=== PATIENT | female | born 1975 | race Caucasian/White ===

== ENCOUNTER 2017-07-07 23:22 | Emergency (ER) | payer SELFPAY ==
[~2017-07-07] VITALS: Ht 165.1 cm; Wt 76.0 kg
[2017-07-07 23:40] VITALS: Ht 165.1 cm; Wt 76.0 kg
== END 2017-07-08 01:41 | disposition left against medical advice (07) ==
LOC: FTE 23:22
DX: Z53.21 Procedure and treatment not carried out due to patient leaving prior to being seen by health care provider (principal)